=== PATIENT | female | born 1965 | race Caucasian/White ===

== ENCOUNTER 2021-07-26 23:13 | Emergency (ER) | payer BC, OTHER ==
[2021-07-26 23:21] VITALS: TEMP 98.7; BMI 32.1
[2021-07-26] MEDS ORDERED: KETOROLAC TROMETHAMINE 60 MG/2 ML VIAL ONE (23:38)
[2021-07-26] MEDS ORDERED: KETOROLAC TROMETHAMINE 60 MG/2 ML VIAL IM ONE (23:41)
[2021-07-27 01:02] VITALS: BP 143/101; PULSE 88
== END 2021-07-27 01:03 | disposition home or self-care (01) ==
LOC: FER 23:13
PROC: 3E0233Z Introduction of Anti-inflammatory into Muscle, Percutaneous Approach (ICD-10-PCS; principal; 2021-07-26)
DX: S62.102A Fracture of unspecified carpal bone, left wrist, initial encounter for closed fracture (principal); W01.0XXA Fall on same level from slipping, tripping and stumbling without subsequent striking against object, initial encounter
CPT/HCPCS: 73110-TC-LT-FY; 99284-25